=== PATIENT | female | born 1965 | race Caucasian/White ===

== ENCOUNTER 2023-05-16 16:00 | Inpatient (IN) ==
[2023-05-16 21:39] LABS: ABS Lymphocytes 1.8 10^3/uL (1.0-4.8); ABS Monocytes 0.5 10^3/uL (0.0-0.9); ABS Neutrophils 3.9 10^3/uL (1.5-7.6); ABS Nucleated RBC 0.01 10^3/ul; Eosinophil % 0.2 %; Hematocrit 40.9 % (35-45); Hemoglobin 14.2 g/dL (11.5-14.3); Mean Corpuscular Hemoglobin 29.6 pg (27-33); Mean Corpuscular Hgb Conc 34.8 g/dL (31-36); Mean Platelet Volume 8.5 fL (7.5-11.2); Nucleated Red Blood Cells % 0.2 /100 WBC (0.0-0.4); Platelet Count 230 10^3/uL (150-450); Red Blood Count 4.81 10^6/uL (3.63-4.92); Red Cell Distribution Width 13.5 % (12-17); White Blood Count 6.4 10^3/uL (3.8-11.8)
[2023-05-16 21:56] LABS: Magnesium 2.1 mg/dL (1.9-2.7)
[2023-05-16 22:59] LABS: Calcium 8.8 mg/dL (8.6-10.3); Creatinine, Serum 0.72 mg/dL (0.51-0.95); Potassium 4.3 mmol/L (3.5-5.0); eGFR CKD-EPI 98.7 (>60)
[2023-05-17] MEDS ORDERED: Calcium Carb (TUMS) 500 mg CHEW TAB PO PRN (07:28)
[2023-05-17] MEDS ORDERED: NS 0.9% 1000 ml BAG 1,000 ML IV SCH (08:30)
[2023-05-17] MEDS ORDERED: ceFAZolin 2 GM in NS PREMIX 2 GM/100 ML BAG IVPB ONE (11:00)
[2023-05-17] MEDS ORDERED: fentaNYL 100 mcg/2 ml 50 MCG/ML VIAL IV SLOW PU ONE (11:02)
[2023-05-17] MEDS ORDERED: Midazolam 10 mg/10 ml VIAL 1 mg/ml 10 ml VIAL (10 mg) IV SLOW PU ONE (11:02)
[2023-05-17] MEDS ORDERED: Midazolam 5 mg/5 ml VIAL 1 mg/ml 5 ml VIAL (5 mg) ONE ×2 (11:30→12:07)
[2023-05-17] MEDS ORDERED: fentaNYL 100 mcg/2 ml 50 MCG/ML VIAL ONE ×2 (11:30→13:03)
[2023-05-17] MEDS ORDERED: Iohexol 300 (CONTRAST) 10 ML SDV ONE ×2 (11:31→12:04)
[2023-05-17] MEDS ORDERED: Lidocaine 1% VIAL 10 MG/ML 30 ML VIAL ONE ×2 (11:31→12:13)
[2023-05-17] MEDS: ceFAZolin VIAL 1 GM in NS 0.9% 50 ML 50 ML IVPB SCH (20:19)
[2023-05-18] MEDS: ceFAZolin VIAL 1 GM in NS 0.9% 50 ML 50 ML IVPB SCH ×2 (05:01→11:11)
[2023-05-18 10:57] VITALS: BP 105/69
== END 2023-05-18 12:30 | disposition home or self-care (01) | DRG 201 ==
LOC: MEDTELE 20:23
PROVIDERS: ADMIT Internal Medicine; ATTEND Internal Medicine